=== PATIENT | male | born 1965 | race American Indian/Alaskan Native ===

== ENCOUNTER 2017-01-02 14:44 | Emergency (ER) | payer OTHER ==
[~2017-01-02] VITALS: Ht 167.6 cm; Wt 106.9 kg
[~2017-01-02 14:44] MED LIST: ACET325T14 PO; ASPI-650 PO; BISA10SU54 PR; CEPH-376 PO; DEXT1DRO7 EACHEYE; DIAZ5TAB4 PO; DIPH25CA61 PO; DOCU-30 PO; FELO10TA PO; HYPR15DR5 EACHEYE; LOSA100T6 PO; METF500T4 PO; OMEG1CAP23 PO; OXYC5TAB3 PO; OXYCODONE PO
[2017-01-02] MEDS ORDERED: TRAM200T17 PO (15:39)
[2017-01-02] MEDS ORDERED: NAPR220T29 PO (15:39)
[2017-01-02] MEDS ORDERED: METF500T9 PO (15:39)
[2017-01-02] MEDS ORDERED: SODIUM CHLORIDE 0.9% 1,000ML IVBOLUS ONE (16:00)
[2017-01-02] MEDS ORDERED: SODIUM CHLORIDE FLUSH 10ML SYR IVF ONE (16:00)
[2017-01-02] MEDS ORDERED: MECLIZINE CHEWABLE 25 MG TAB PO ONE (16:00)
[2017-01-02 16:05] LABS: HEMATOCRIT 47.2 % (39.2-51.8); HEMOGLOBIN 15.6 g/dL (13.7-18.0); WHITE BLOOD COUNT 7.1 x10^3/uL (3.4-10)
[2017-01-02] MEDS ORDERED: MECLIZINE CHEWABLE 25 MG TAB ONE (16:14)
[2017-01-02 16:15] LABS: ASPARTATE AMINO TRANSFERASE 14 U/L (15-37); BLOOD UREA NITROGEN 13 mg/dL (7-18)
[2017-01-02 18:59] VITALS: BP 153/82
== END 2017-01-02 19:01 | disposition home or self-care (01) ==
LOC: ED 16:56
DX: R42 Dizziness and giddiness (principal); E11.9 Type 2 diabetes mellitus without complications; I10 Essential (primary) hypertension
CPT/HCPCS: 36415; 70450; 80053; 85025; 93005; 96360; 96361; 99285; J7030

== ENCOUNTER → 2017-08-15 | Outpatient (CLI) | payer OTHER ==
[~2017-08-15] MED LIST changes: +DOCU-131 PO; -DOCU-30 PO; +METF500T9 PO; +NAPR-816 PO; +TRAM200T17 PO
[2017-08-15 11:22] LABS: HCT (SEDRATE) 49.8 % (39.2-51.8)
[2017-08-15 12:30] LABS: HEMOGLOBIN A1C 6.6 % (4.2-6.3)
== END | disposition home or self-care (01) ==
LOC: LAB 11:01
PROVIDERS: ATTEND Orthopaedic Surgery Adult Reconstructive Orthopaedic Surgery
DX: T84.84XA Pain due to internal orthopedic prosthetic devices, implants and grafts, initial encounter (principal); Z96.652 Presence of left artificial knee joint
CPT/HCPCS: 36415; 83036; 85651; 86140

== ENCOUNTER 2017-09-14 07:05 | Inpatient (IN) | payer OTHER ==
[~2017-09-14] VITALS: Ht 167.6 cm; Wt 110.8 kg
[~2017-09-14 07:05] MED LIST changes: +ATOR20TA9 PO; +BUPIVACAINE LIPOSOME/PF INFIL ONE; +CLOB15CR TD; +EPINEPHRINE 1 MG/ML, 1ML ONE; +KETOROLAC 60 MG/2 ML ONE; +ROPIvacaine/PF 0.2%, 20 ML ONE; +TRAM50TA2 PO; +TRANEXAMIC ACID 100 MG/ML, 10ML ONE
[2017-09-14] MEDS ORDERED: LACTATED RINGERS 1,000 ML IV SCH (07:58)
[2017-09-14] MEDS ORDERED: GABAPENTIN 300 MG CAPSULE PO ONE (08:00)
[2017-09-14] MEDS ORDERED: LIDOCAINE-MPF 1%, 2ML INFIL ONE (08:00)
[2017-09-14] MEDS ORDERED: ACETAMINOPHEN 500 MG TABLET PO ONE (08:00)
[2017-09-14] MEDS ORDERED: D-ME1CAP40 PO (08:25)
[2017-09-14] MEDS ORDERED: NAPR220C2 PO (08:25)
[2017-09-14] MEDS ORDERED: MUPI22OI2 NAS (08:25)
[2017-09-14] MEDS ORDERED: D ME PO (08:25)
[2017-09-14] MEDS ORDERED: IBUP200C5 PO (08:25)
[2017-09-14] MEDS ORDERED: ACET-1600 PO (08:25)
[2017-09-14] MEDS ORDERED: LIDOCAINE-MPF 1%, 2ML ONE (08:33)
[2017-09-14] MEDS ORDERED: VANCOMYCIN PER PHARMACY MC PRN (09:00)
[2017-09-14] MEDS ORDERED: VANCOMYCIN 1,600 MG in SODIUM CHLORIDE 0.9% 250 ML IV ONE (09:30)
[2017-09-14] MEDS ORDERED: MIDAZOLAM 1 MG/ML, 2ML ONE (09:35)
[2017-09-14] MEDS ORDERED: FENTANYL PF 250 MCG/5ML ONE ×2 (09:36→12:00)
[2017-09-14] MEDS: SODIUM CHLORIDE 0.9% 1,000 ML IV SCH ×2 (12:45→22:45)
[2017-09-14] MEDS ORDERED: HYDROmorphone 1 MG/ML, 1ML IV PRN (13:00)
[2017-09-14] MEDS ORDERED: SENNA/DOCUSATE TABLET PO PRN (13:00)
[2017-09-14] MEDS ORDERED: MEPERIDINE/PF 25MG/0.5ML IVPush PRN (13:00)
[2017-09-14] MEDS ORDERED: HYDROcodone/APAP 7.5-325MG/15ML UDC PO PRN (13:00)
[2017-09-14] MEDS ORDERED: DIPHENHYDRAMINE 25 MG CAPSULE PO PRN (13:00)
[2017-09-14] MEDS ORDERED: ACETAMINOPHEN 650 MG/20.3 ML UDC PO PRN (13:00)
[2017-09-14] MEDS ORDERED: CEFAZOLIN PMX 2GM/50ML 50 ML IVPB SCH ×2 (13:00→16:00)
[2017-09-14] MEDS ORDERED: BISACODYL 10 MG SUPP PR PRN (13:00)
[2017-09-14] MEDS ORDERED: hydrALAzine 20 MG/ML, 1ML IV PRN (13:00)
[2017-09-14] MEDS ORDERED: ALUMINUM/MAG/SIMETHICONE 30 ML UDC PO PRN (13:00)
[2017-09-14] MEDS ORDERED: ALBUTEROL SULFATE 2.5 MG/3 ML NPPB PRN (13:00)
[2017-09-14] MEDS ORDERED: TAMSULOSIN 0.4 MG CAP.ER.24H PO PRN (13:00)
[2017-09-14] MEDS ORDERED: morphine SULFATE 10 MG/ML, 1ML IV PRN ×2 (13:00)
[2017-09-14] MEDS ORDERED: MAGNESIUM HYDROXIDE 8%, 30ML UDC PO PRN (13:00)
[2017-09-14] MEDS ORDERED: DIAZEPAM 5 MG TABLET PO PRN (13:00)
[2017-09-14] MEDS ORDERED: ONDANSETRON 2MG/ML, 2ML IVPush PRN (13:00)
[2017-09-14] MEDS ORDERED: FENTANYL PF 100 MCG/2ML IV PRN (13:00)
[2017-09-14] MEDS ORDERED: ALBUTEROL/IPRATROPIUM 2.5MG/0.5MG, 3 ML NPPB PRN (13:00)
[2017-09-14] MEDS ORDERED: PROMETHAZINE 25 MG/ML, 1ML IV PRN (13:00)
[2017-09-14] MEDS ORDERED: METOCLOPRAMIDE 5 MG/ML, 2ML IV PRN (13:00)
[2017-09-14] MEDS ORDERED: ONDANSETRON 4 MG TABLET PO PRN (13:00)
[2017-09-14] MEDS ORDERED: LABETALOL 5MG/ML, 20ML IV PRN (13:00)
[2017-09-14] MEDS ORDERED: OXYcodone IR 5MG TABLET PO PRN (13:00)
[2017-09-14] MEDS ORDERED: CLOBETASOL PROPIONATE CRM 0.05%, 15GM TP PRN (15:00)
[2017-09-14] MEDS ORDERED: ROCURONIUM 10 MG/ML,10ML ONE (16:48)
[2017-09-14] MEDS ORDERED: PROPOFOL 10 MG/ML, 20ML ONE (16:48)
[2017-09-14] MEDS ORDERED: SUCCINYLCHOLINE 20 MG/ML, 10ML ONE (16:48)
[2017-09-14] MEDS ORDERED: CEFAZOLIN 1,000 MG ONE (16:48)
[2017-09-14] MEDS ORDERED: ONDANSETRON 2MG/ML, 2ML ONE (16:48)
[2017-09-14] MEDS: CEFAZOLIN PMX 2GM/50ML 50 ML IVPB SCH (17:54)
[2017-09-14 19:47] VITALS: BP 161/118
[2017-09-14 20:03] VITALS: BP 132/90
[2017-09-14] MEDS ORDERED: ATORVASTATIN 20 MG TABLET PO SCH (21:00)
[2017-09-14] MEDS: DOCUSATE 100 MG CAPSULE PO SCH (21:11)
[2017-09-14] MEDS: HYDROcodone/APAP 5/325 TABLET PO PRN ×2 (21:11→21:13)
[2017-09-15 00:13] VITALS: BP 137/78
[2017-09-15] MEDS: CEFAZOLIN PMX 2GM/50ML 50 ML IVPB SCH (01:50)
[2017-09-15] MEDS: HYDROcodone/APAP 5/325 TABLET PO PRN (03:18)
[2017-09-15 04:26] VITALS: BP 141/90
[2017-09-15] MEDS ORDERED: ASPIRIN 325 MG TABLET EC PO SCH (06:00)
[2017-09-15 08:00] VITALS: BP 132/90
[2017-09-15] MEDS: DOCUSATE 100 MG CAPSULE PO SCH (08:21)
[2017-09-15] MEDS ORDERED: LOSARTAN 50MG TABLET PO SCH (09:00)
[2017-09-15] MEDS ORDERED: metFORMIN XR 500 MG TAB.ER.24H PO SCH (09:00)
[2017-09-15] MEDS ORDERED: DOCU-131 PO (10:28)
[2017-09-15] MEDS ORDERED: OXYC5TAB3 PO (10:30)
[2017-09-15] MEDS ORDERED: ASPI-515 PO (10:32)
[2017-09-15] MEDS ORDERED: KETOROLAC 30 MG/1 ML IV SCH (13:00)
== END 2017-09-15 11:05 | disposition home or self-care (01) | DRG 468 ==
LOC: ORIP 07:05 → 4NOR 14:31 → DCLOUNGE 09-15 10:40
PROVIDERS: ADMIT Orthopaedic Surgery Adult Reconstructive Orthopaedic Surgery; ATTEND Orthopaedic Surgery Adult Reconstructive Orthopaedic Surgery
PROC: 0SWD0JZ Revision of Synthetic Substitute in Left Knee Joint, Open Approach (ICD-10-PCS; principal; 2017-09-14 10:00)
DX: T84.093A Other mechanical complication of internal left knee prosthesis, initial encounter (principal); Y79.2 Prosthetic and other implants, materials and accessory orthopedic devices associated with adverse incidents; Y83.8 Other surgical procedures as the cause of abnormal reaction of the patient, or of later complication, without mention of misadventure at the time of the procedure; Y92.89 Other specified places as the place of occurrence of the external cause
CPT/HCPCS: 36415; 82962; 85014; 85018; C1713; C9290; J0171; J0690; J1885; J2250; J2405; J2704; J2795; J3010; J3370; J3490; C1776; J0330; J7050; J7120